=== PATIENT | female | born 1985 | race Caucasian/White ===

== ENCOUNTER 2018-04-17 12:37 | Emergency (ER) | payer BC ==
[2018-04-17] MEDS ORDERED: Sodium Chloride 0.9% 1,000 ML IV ONE (13:34)
--- NOTE | 2018-04-17 13:39 | C.PDOC ---
History Of Present Illness 32 year old female with no medical problems presents to the ED complaining of abdominal pain and back pain for 3 days. Denies any trauma. Notes she felt a sharp pain in her back while sitting in her desk 3 days ago and pain has been intermittent and worse with movement since then. Describes pain as a sour feeling. Notes she is able to tolerate PO. States she took Tylenol 3 days ago with no relief and she took Naproxen this morning with minor improvement. Reports she was seen at Urgent Care yesterday and bloodwork was done. CMP, CBC, LFT, and Amylase/Lipase tests were normal. Denies any nauseas, vomiting, diarrhea, fever, chills, shortness of breath, chest pain, dysuria, hematuria, or any other symptoms. PMD: Dr. Mario Roberts Time Seen by Provider: 04/17/18 13:16 Chief Complaint (Nursing): Abdominal Pain History Per: Patient History/Exam Limitations: no limitations Onset/Duration Of Symptoms: Days Current Symptoms Are (Timing): Still Present Location Of Pain/Discomfort: Epigastric Associated Symptoms: Back Pain. denies: Fever, Chills, Nausea, Vomiting, Diarrhea Past Medical History Reviewed: Historical Data, Nursing Documentation, Vital Signs Vital Signs: Last Vital Signs Temp 98.9 F 04/17/18 12:54 Pulse 75 04/17/18 12:54 Resp 18 04/17/18 12:54 BP 118/77 04/17/18 12:54 Pulse Ox 97 04/17/18 12:54 - Medical History PMH: No Chronic Diseases Surgical History: No Surg Hx Family History: States: Diabetes (father), Hypertension (father ), Other - Social History Hx Tobacco Use: No Hx Alcohol Use: No Hx Substance Use: No - Immunization History Hx Tetanus Toxoid Vaccination: No Hx Influenza Vaccination: No Hx Pneumococcal Vaccination: No Review Of Systems Except As Marked, All Systems Reviewed And Found Negative. Constitutional: Negative for: Fever, Chills Cardiovascular: Negative for: Chest Pain Respiratory: Negative for: Cough, Shortness of Breath Gastrointestinal: Positive for: Abdominal Pain. Negative for: Nausea, Vomiting, Diarrhea Genitourinary: Negative for: Dysuria, Hematuria Musculoskeletal: Positive for: Back Pain Physical Exam - Physical Exam Appears: Non-toxic, No Acute Distress Skin: Warm, Dry, No Rash Head: Normacephalic Eye(s): bilateral: Normal Inspection Nose: Normal Oral Mucosa: Moist Lips: Normal Appearing Throat: Normal Neck: Supple Chest: Symmetrical Cardiovascular: Rhythm Regular Respiratory: Normal Breath Sounds, No Rales, No Rhonchi, No Wheezing Gastrointestinal/Abdominal: Soft, Tenderness (mid epigastric and suprapubic tenderness), No Distention, No Guarding, No Rebound Rectal: Deferred Back: No CVA Tenderness, Vertebral Tenderness, No Paraspinal Tenderness Extremity: Bilateral: Atraumatic, Normal Color And Temperature, Normal ROM Neurological/Psych: Oriented x3, Normal Speech Gait: Steady ED Course And Treatment - Laboratory Results Result Diagrams: 04/17/18 13:52 04/17/18 13:52 O2 Sat by Pulse Oximetry: 97 (RA) Pulse Ox Interpretation: Normal Medical Decision Making Medical Decision Making: Initial Impression: Abd pain; possible peptic ulcer disease Initial Plan: - Bloodwork - Pepcid 20mg IVP - IV fluids - UA - HCG Progress note: Pt feels better. Will d/c home. Disposition Counseled Patient/Family Regarding: Studies Performed, Diagnosis, Need For Followup, Rx Given - Disposition Referrals: Jayjay Katz MD [Staff Provider] - Disposition: HOME/ ROUTINE Disposition Time: 16:23 Condition: STABLE Additional Instructions: Doe, thank you for letting us take care of you today. Return to the ER if your symptoms worsen, or if any problems. Take the medication listed below as prescribed. Follow up with our GI doctor -- Dr. Katz. His phone number is listed below. Call to make an appointment. Instructions: Peptic Ulcers, Gastritis Forms: [email or web address] ([email or web address]) Print Language: MAORI - POA Present On Arrival: None - Clinical Impression Clinical Impression: Peptic ulcer - Scribe Statement The provider has reviewed the documentation as recorded by the Nikibmg Portillo All medical record entries made by the Scribe were at my direction and personally dictated by me. I have reviewed the chart and agree that the record accurately reflects my personal performance of the history, physical exam, medical decision making, and the department course for this patient. I have also personally directed, reviewed, and agree with the discharge instructions and disposition.
[2018-04-17] MEDS ORDERED: Sodium Chloride 0.9% 1,000 ML ONE (13:55)
[2018-04-17 14:02] LABS: BASO % 0.7 % (0.0-2.0); EOS # 0.2 K/uL (0.0-0.7); EOS % 3.3 % (0.0-4.0); HEMOGLOBIN 12.4 g/dL (11.0-16.0); LYMPH # 1.8 K/uL (1.0-4.3); LYMPH % 28.4 % (20.0-40.0); MEAN CELL VOLUME 93.8 fL (81.0-99.0); MEAN CORPUSCULAR HEMOGLOBIN 31.3 pg (27.0-31.0); MEAN CORPUSCULAR HGB CONC 33.4 g/dL (33.0-37.0); MEAN PLATELET VOLUME 8.3 fL (7.2-11.7); MONO # 0.5 K/uL (0.0-0.8); MONO % 8.4 % (0.0-10.0); NEUT # 3.7 K/uL (1.8-7.0); NEUT % 59.2 % (50.0-75.0); NRBC % 0.1 % (0.0-2.0); RBC 3.94 Mil/uL (3.80-5.20); RED CELL DISTRIBUTION WIDTH 12.1 % (11.5-14.5); WHITE BLOOD COUNT 6.3 K/uL (4.8-10.8)
[2018-04-17 14:21] LABS: ALB/GLOB RATIO 1.4 (1.0-2.1); ALBUMIN 4.2 g/dL (3.5-5.0); ALT/SGPT 25 U/L (9-52); AST/SGOT 24 U/L (14-36); BLOOD UREA NITROGEN 11 mg/dL (7-17); CALCIUM 9.1 mg/dl (8.6-10.4); GFR NON-AFRICAN AMERICAN > 60; LIPASE 87 U/L (23-300)
[2018-04-17 14:44] LABS: SQUAMOUS EPITHIAL 3 /hpf (0-5); URINE AMORPHOUS SEDIMENT MODERATE /ul (<OCC); URINE BILIRUBIN 1+ (NEGATIVE); URINE BLOOD NEGATIVE (NEGATIVE); URINE CLARITY Hazy (Clear); URINE COLOR Amber (YELLOW); URINE GLUCOSE (UA) NORMAL (Normal); URINE LEUKOCYTE ESTERASE NEG Leu/uL (Negative); URINE PROTEIN 1+ mg/dL (NEGATIVE)
[2018-04-17] MEDS ORDERED: Sucralfate 1 gm/10 ml Oral Susp UD PO STA (14:50)
--- NOTE | 2018-04-17 16:20 | US ---
Right upper quadrant abdominal ultrasound HISTORY: Abdominal pain. COMPARISON: None available. TECHNIQUE: Real-time sonography was performed through the right upper quadrant of the abdomen. FINDINGS: Liver: 16.1 centimeters in length. Normal echogenicity. Gallbladder: Partially contracted. No calculi or sludge. Normal wall thickness of 2.2 millimeters. Normal wall edema. Negative sonographic Rogers's sign. Common bile duct measures 3.6 millimeters, within normal limits. Visualized portions of the pancreas are preserved. Pancreatic tail not well visualized. Visualized aorta and IVC are preserved. Right kidney: 12.0 x 4.9 x 5.3 centimeters. No calculi or hydronephrosis. Impression: Unremarkable sonographic evaluation of the right upper quadrant of the abdomen.
[2018-04-17 16:31] VITALS: BP 111/72; PULSE 60; RESP 16; TEMP 98.4
[2018-04-30 16:43] VITALS: O2SAT 97
== END 2018-04-17 16:31 | disposition home or self-care (01) ==
LOC: C.ER 12:37
DX: K27.9 Peptic ulcer, site unspecified, unspecified as acute or chronic, without hemorrhage or perforation (principal)
CPT/HCPCS: 76705; 80053; 81001; 83690; 84703; 85025; 96374; 99284; J7030

== ENCOUNTER 2018-04-21 11:04 | Day surgery (SDC) | payer BC ==
[2018-04-20 13:12] VITALS: BMI 20.8
[2018-04-21 11:54] VITALS: O2SAT 100
[2018-04-21] MEDS ORDERED: Propofol 10 mg/ml Inj (20 ML) ONE (13:13)
[2018-04-21] MEDS ORDERED: Midazolam 2 MG/2 ML VIAL ONE (13:13)
[2018-04-21 13:44] VITALS: TEMP 98.9
[2018-04-21 14:18] VITALS: BP 102/65; PULSE 74; RESP 19
== END 2018-04-21 14:32 | disposition home or self-care (01) ==
LOC: C.ENDO 11:04
PROVIDERS: ATTEND Internal Medicine Gastroenterology
DX: K29.50 Unspecified chronic gastritis without bleeding (principal); R10.13 Epigastric pain
CPT/HCPCS: 43239; 84703; 88305; 88312; 88313; 88342; J2001; J2250; J2704; J3010